=== PATIENT | female | born 1970 | race Caucasian/White ===

== ENCOUNTER 2024-11-04 13:44 | Emergency (ER) | payer MEDICARE, MEDICAID ==
[~2024-11-04] VITALS: Ht 165.1 cm; Wt 145.2 kg
[~2024-11-04 13:44] MED LIST: ZOF4T PO
[2024-11-04 13:53] VITALS: PULSE 100
[2024-11-04 15:35] VITALS: BP 171/111; RESP 18; TEMP 98.4; O2SAT 89
== END 2024-11-04 16:30 | disposition left against medical advice (07) ==
LOC: ER 13:45
DX: R60.0 Localized edema (principal); J44.9 Chronic obstructive pulmonary disease, unspecified; Z88.0 Allergy status to penicillin; Z88.2 Allergy status to sulfonamides; Z88.5 Allergy status to narcotic agent; Z98.51 Tubal ligation status; Z79.899 Other long term (current) drug therapy
CPT/HCPCS: 99281

== ENCOUNTER 2025-03-22 09:59 | Outpatient (CLI) | payer MEDICARE, MEDICAID ==
[2025-03-22 10:44] VITALS: PULSE 62; RESP 67; O2SAT 84
--- NOTE | 2025-03-23 16:21 | PROCEDURE NOTE - Respiratory ---
Procedure Note-Respiratory Providers to CC Copies To 1: SUNG KENYN MD Procedure Name: This is a spirometry study dated March 22, 2025. Spirometry measurements: There is substantial reduction in both the forced vital capacity and the FEV1. The FEV1 ratio is slightly elevated. Some of the flow rates show slight reduction. Bronchodilator was not administered as part of the study. Overall conclusion: This study is abnormal. There is evidence for obstructive ventilatory defect in the moderate category. This is consistent with the patient's diagnosis of COPD smoking-related. In addition there is evidence for a restrictive ventilatory defect based on the reduction in the forced vital c apacity. Part of this restrictive physiology may relate to the patient's obesity. We have no previous studies for comparison. Continued use of inhaled bronchodilator is recommended for this patient. Complete abstinence from cigarette smoking is recommended. JUNIOR RAMOS MD Mar 23, 2025 16:21
== END 2025-03-22 23:59 | disposition home or self-care (01) ==
LOC: RT 09:59
PROVIDERS: ATTEND Family Medicine
DX: J44.9 Chronic obstructive pulmonary disease, unspecified (principal)
CPT/HCPCS: 94010; 94760